=== PATIENT | female | born 1955 | race Caucasian/White ===

== ENCOUNTER → 2016-09-23 | Outpatient (CLI) | payer BC ==
[~2016-09-23] MED LIST: B12; CALCIUM CITRAT200 MG PO; CEFTIN250 MG PO; FERROUS SU325 MG/TAB PO; MVI
== END ==
LOC: MC.RAD 07:20
DX: Z12.31 Encounter for screening mammogram for malignant neoplasm of breast (principal)

== ENCOUNTER → 2017-10-08 | Outpatient (CLI) | payer BC | LOC: MC.RAD 07:22 | DX: Z12.31 Encounter for screening mammogram for malignant neoplasm of breast (principal) ==

== ENCOUNTER → 2020-08-29 | Outpatient (CLI) | payer BC | LOC: MC.RAD 15:59 | DX: Z12.31 Encounter for screening mammogram for malignant neoplasm of breast (principal) ==

== ENCOUNTER → 2022-03-12 | Outpatient (CLI) | payer OTHER | LOC: MC.RAD 09:01 | DX: Z12.31 Encounter for screening mammogram for malignant neoplasm of breast (principal) ==

== ENCOUNTER 2022-10-08 19:48 | Emergency (ER) | payer OTHER, BC ==
[~2022-10-08] VITALS: Ht 162.6 cm; Wt 89.1 kg
[2022-10-08 19:56] VITALS: TEMP 98.2
[2022-10-08 21:02] LABS: BASO # 0.1 K/mm3 (0.0-0.2); BASO % 0.6 % (0.0-2.0); EOS # 0.3 K/mm3 (0.0-0.7); EOS % 2.1 % (0.0-4.0); GRAN # 10.8 K/mm3 (1.4-6.5); GRAN % 69.3 % (42.2-75.2); HEMATOCRIT 39.4 % (37.0-47.0); HEMOGLOBIN 11.9 g/dl (12.5-16.0); LYMPH % 19.2 % (20.0-51.0); MEAN CELL VOLUME 79 fl (80.0-100.0); MEAN CORPUSCULAR HEMOGLOBIN 24 pg (27-31); MEAN CORPUSCULAR HGB CONC 30 g/dl (33.0-37.0); MEAN PLATELET VOLUME 10.7 fl (7.4-10.4); MONO # 1.3 K/mm3 (0.1-0.6); MONO % 8.5 % (1.7-9.3); PLATELET COUNT 734 K/mm3 (130-400); RED BLOOD COUNT 4.97 M/mm3 (4.10-5.30); REDCELL DISTRIBUTION WIDTH-CV 17.8 % (11.5-14.5)
[2022-10-08 21:07] LABS: INR 1.1 (0.8-3.0); PROTHROMBIN TIME 12.3 SECONDS (9.7-12.8)
[2022-10-08 21:13] LABS: ALBUMIN 3.9 gm/dL (3.4-4.8); BILIRUBIN,TOTAL 0.3 mg/dL (0.2-1.2); CALCIUM 9.4 mg/dL (8.4-10.2); CREATININE, serum 0.83 mg/dL (0.57-1.11); POTASSIUM 3.7 mmol/L (3.5-4.5); TOTAL PROTEIN 7.6 gm/dL (6.2-8.1)
[2022-10-08 21:34] LABS: TROPONIN-I 4.39 ng/mL (0.00-0.033)
[2022-10-08 22:06] VITALS: BP 144/68; PULSE 75
== END 2022-10-08 22:00 | disposition short-term general hospital (02) ==
LOC: COL.ER 19:48
PROVIDERS: Personal Emergency Response Attendant
DX: T80.89XA Other complications following infusion, transfusion and therapeutic injection, initial encounter (principal); I21.3 ST elevation (STEMI) myocardial infarction of unspecified site
CPT/HCPCS: J1644; J3101; Q9967

== ENCOUNTER 2024-03-18 21:09 | Emergency (ER) | payer BC ==
[~2024-03-18] VITALS: Ht 162.6 cm; Wt 86.4 kg
[2024-03-18 21:11] VITALS: TEMP 97.8
[2024-03-18] MEDS ORDERED: CLEOCIN HCL300 MG PO (21:51)
[2024-03-18] MEDS ORDERED: NS Flush 25 ML IV Bag IV ONE (22:00)
[2024-03-18 22:58] VITALS: BP 114/56; PULSE 72
== END 2024-03-18 22:58 | disposition home or self-care (01) ==
LOC: COL.ER 21:09
DX: R04.2 Hemoptysis (principal)
CPT/HCPCS: J0737